=== PATIENT | male | born 1955 | race Caucasian/White ===

== ENCOUNTER 2019-11-29 07:23 | Outpatient (CLI) | payer MEDICARE, OTHER | END 2019-11-29 23:59 | disposition home or self-care (01) | LOC: LAB 07:23 | PROVIDERS: ATTEND Specialist | DX: Z01.812 Encounter for preprocedural laboratory examination (principal); Z11.59 Encounter for screening for other viral diseases | CPT/HCPCS: C9803; U0003 ==

== ENCOUNTER 2019-12-06 05:00 | Inpatient (IN) | payer MEDICARE, OTHER ==
[~2019-12-06] VITALS: Ht 175.3 cm; Wt 96.4 kg
[2019-12-06] VITALS (7 sets, daily range): BP systolic 104–125; BP diastolic 60–78
[2019-12-06] MEDS ORDERED: IBUP-1958 PO (05:49)
--- NOTE | 2019-12-06 05:50 | NUR ---
MS RN ADMITTING NOTES PATIENT RECEIVED FROM HOME, AMBULATORY A/O X 4. STABLE ON RA WITH BREATHING EVEN AND UNLABORED, NO SOB NOTED. NO SIGNS OF ACUTE DISTRESS. NO COMPLAINTS OF PAIN OR DISCOMFORT AT THE MOMENT. PATIENT REMAINED NPO THROUGHOUT THE NIGHT. CONSENT SIGNS. VITALS TAKEN. BELONGINGS ACCOUNTED FOR. PATIENT ORIENTED TO ROOM AND STAFF. IV STARTED ON R FA #20 SL. WILL CONTINUE TO MONITOR. MD AT BEDSIDE.
--- NOTE | 2019-12-06 06:00 | NUR ---
MS RN NOTES PT WENT DOWN FOR SURGERY, WILL ENDORSE TO ONCOMING SHIFT ABOUT AMOS.
[2019-12-06] MEDS ORDERED: ANESTHESIA TRAY IN PYXIS 1 EA TRAY MC ONE (06:04)
[2019-12-06] MEDS ORDERED: BACITRACIN 50000 UNITS/VIAL ONE (06:04)
[2019-12-06] MEDS ORDERED: BUPIVACAINE 0.5 % PF 150 MG/30 ML VIAL ONE (06:04)
[2019-12-06] MEDS ORDERED: FENTANYL PF 250MCG/5ML AMPUL ONE ×2 (06:09)
[2019-12-06] MEDS ORDERED: MIDAZOLAM HCL 2 MG/2ML VIAL ONE (06:09)
[2019-12-06] MEDS ORDERED: BUPIVACAINE 0.25% 75 MG/30 ML VIAL ONE (06:10)
[2019-12-06] MEDS ORDERED: HYDROMORPHONE INJ 2 MG/ML DISP.SYRIN ONE (06:10)
[2019-12-06] MEDS ORDERED: FAMOTIDINE/PF INJ 20 MG/2 ML VIAL IV ONE (06:11)
[2019-12-06] MEDS ORDERED: ROCURONIUM BROMIDE 50 MG/5 ML ONE (06:11)
--- NOTE | 2019-12-06 06:43 | NUR ---
MS RN NOTES PATIENT SHOULDER SLING DELIVERED, LEFT AT BEDSIDE.
[2019-12-06] MEDS ORDERED: TRANEXAMIC ACID 3,000 MG in SODIUM CHLORIDE IRRIG SOLUTION 70 ML IR ONE (07:00)
[2019-12-06] MEDS ORDERED: HYDROCODONE/APAP 5/325MG 1 EACH TABLET PO PRN (09:30)
[2019-12-06] MEDS ORDERED: DOCUSATE SODIUM 250 MG CAPSULE PO PRN (09:30)
[2019-12-06] MEDS ORDERED: IV D5/0.45 NACL 1,000 ML IV PRN (09:30)
[2019-12-06] MEDS ORDERED: BISACODYL SUPP (10 MG) 10 MG/SUPP.RECT SUPP.RECT RC PRN (09:30)
[2019-12-06] MEDS ORDERED: SENNOSIDES 8.6 MG TABLET PO PRN (09:30)
[2019-12-06] MEDS ORDERED: ONDANSETRON HCL/PF 4 MG/2 ML VIAL IVP PRN ×2 (09:30→10:00)
[2019-12-06] MEDS ORDERED: ZOLPIDEM TARTRATE 5 MG TABLET PO PRN (09:30)
--- NOTE | 2019-12-06 09:50 | NUR ---
MS/RN NOTE THE PATIENT IS RECEIVED FROM OR IN BED. THE PATIENT ALERT AND ORIENTED X4. DENIES PAIN. RECEIVING OXYGEN AT 2L.MIN VIA NASAL CANNULA AND DENIES SOB. RESPIRATION REGULAR AND UNLABORED. LEFT SHOULDER SURGICAL DRESSING INTACT. NO S/S POOR CIRCULATION ON LEFT HAND/ARM NOTED. RFA G20 PATENT AND SALINE LOCKED. BED LOW AND LOCKED. SIDE RAILS UP X3. WILL CONTINUE TO MONITOR.
[2019-12-06] MEDS ORDERED: diphenhydrAMINE HCL 25 MG CAPSULE PO PRN (10:00)
[2019-12-06] MEDS ORDERED: MAGNESIUM HYDROXIDE 30 ML UDC PO PRN (10:00)
[2019-12-06] MEDS ORDERED: NALOXONE HCL 0.4 MG/ML AMPUL IV PRN (10:00)
[2019-12-06] MEDS ORDERED: CLONIDINE HCL 0.1 MG TABLET PO PRN (10:00)
[2019-12-06] MEDS ORDERED: MAG HYDROX/AL HYDROX/SIMETH 30 ML UDC PO PRN (10:00)
[2019-12-06] MEDS ORDERED: MENTHOL/CETYLPYRD (CEPACOL) 1 LOZ LOZENGE MM PRN (10:00)
[2019-12-06] MEDS ORDERED: HYDROMORPHONE 1 MG/1 ML DISP.SYRIN IV PRN (10:00)
[2019-12-06] MEDS ORDERED: BETHANECHOL CHLORIDE (25 MG) 25 MG TABLET PO ONE (12:14)
[2019-12-06] MEDS ORDERED: TAMSULOSIN 0.4 MG CAP.SR.24H PO ONE (12:14)
[2019-12-06] MEDS: BETHANECHOL CHLORIDE (25 MG) 25 MG TABLET PO SCH ×2 (12:39→17:44)
[2019-12-06] MEDS: ANCEF 1 GM/50 ML D5W IV SCH ×4 (15:11→22:16)
[2019-12-06] MEDS ORDERED: oxyCODONE IR immediate release 5 MG PO ONE (17:00)
[2019-12-06] MEDS: FAMOTIDINE (20 MG) 20 MG TABLET PO SCH (17:44)
[2019-12-06] MEDS: DOCUSATE SODIUM 100 MG CAPSULE PO SCH (17:44)
--- NOTE | 2019-12-06 18:55 | NUR ---
MS/RN NOTE THE PATIENT IS ALERT AND ORIENTED X4. DENIES PAIN. RESPIRATION REGULAR AND UNLABORED. THE PATIENT IS IN ROOM AIR AND SATURATION IS AT 97%. PATIENT IN NO APPARENT DISTRESS. LEFT SHOULDER INCISION DRESSING INTACT. NO S/S POOR CIRCULATION ON LEFT HAND /ARM NOTED. LEFT ARM SLING STILL IN PLACED PLACED IN OT. RIGHT FA G 20 PATENT AND D5 1/2 NS INFUSING AR 75ML/HR. NO S/S INFILTRATION NOTED. BED LOW AND LOCKED. SIDE RAILS UP X3. CALL LIGHT WITHIN REACH. WILL ENDORSE TO NEWSPAPER EDITOR.
--- NOTE | 2019-12-06 19:30 | NUR ---
MS/RN PM OPENING NOTE THE PATIENT IS ALERT AND ORIENTED X4. DENIES PAIN. REPORTS HE HAS STILL HAS NUMBNESS TO LEFT HAND. REPORTS TINGLING SENSATION IN FINGERS, CAP REFILL LESS THEN 3 SECONDS TO LEFT HAND AND IS PINK. LEFT ARM IN SLING SURGICAL DRESSING TO LEFT SHOULDER IS CDI WITH NO SIGNS OF DRAINAGE/BLEEDING. RESPIRATION EVEN REGULAR AND UNLABORED. THE PATIENT IS IN ROOM AIR AND SATURATION IS AT 97%. PATIENT IN NO APPARENT DISTRESS. LEFT SHOULDER INCISION DRESSING INTACT. RIGHT FA G 20 PATENT AND D5 1/2 NS PATIENT TOLERATING PO INTAKE SO IV HEPLOCKED PER SURGICAL ORDERS. NO S/S INFILTRATION NOTED. BED LOW AND LOCKED. SIDE RAILS UP X3. CALL LIGHT WITHIN REACH. WILL CONTINUE TO MONITOR.
[2019-12-06] MEDS: oxyCODONE IR immediate release 5 MG PO PRN (22:04)
--- NOTE | 2019-12-07 02:00 | NUR ---
OXYCODONE 10MG AND TYELENOL ADMINISTERED PER PATIENT REQUEST. PATIENT REQUESTING DOSE OF EQUIVALENT HOME MEDICATION PERCOCET 10/325MG. PATIENT REPORTS PAIN IS 6/10. OXYCODONE 10 MG AND TYELENOL ADMINISTERED PER PATIENT REQUEST.
[2019-12-07] MEDS: ACETAMINOPHEN 325 MG TABLET PO PRN ×2 (02:01→05:58)
[2019-12-07] MEDS: oxyCODONE IR immediate release 5 MG PO PRN ×3 (02:01→09:32)
--- NOTE | 2019-12-07 05:50 | NUR ---
oxycodone ir 10 mg administered per patient request for pain in left shoulder rated 6 of 10.
--- NOTE | 2019-12-07 06:00 | NUR ---
dr. sanchez called and updated on patients condition. tyelenol administered per patient request for pain left shoulder 08/09
--- NOTE | 2019-12-07 07:30 | NUR ---
MS/RN NOTE THE PATIENT IS RECEIVED IN BED. THE PATIENT IS ALERT AND ORIENTED X4. RESPIRATION REGULAR AND UNLABORED. IN ROOM AIR AND DENIES SOB. RESPIRATION REGULAR AND UNLABORED. COMPLAINS OF LEFT SHOULDER PAIN 3/10 BUT DOES NOT WANT ANY PAIN MEDICATION AT THIS TIME. WILL CONTINUE TO ASSESS PAIN AND OFFER PAIN MEDICATION IF NEEDED. LEFT HAND/ARM WARM TO TOUCH. DENIES NUMBNESS/ TINGLING. BED LOW AND LOCKED. SIDE RAILS UP X2. CALL LIGHT WITHIN REACH. WILL CONTINUE TO MONITOR.
[2019-12-07 08:00] VITALS: BP 107/65
[2019-12-07] MEDS ORDERED: TAMSULOSIN 0.4 MG CAP.SR.24H PO SCH (09:00)
[2019-12-07] MEDS ORDERED: ASPIRIN 325 MG TABLET PO SCH (09:00)
[2019-12-07] MEDS: DOCUSATE SODIUM 100 MG CAPSULE PO SCH (09:33)
[2019-12-07] MEDS: FAMOTIDINE (20 MG) 20 MG TABLET PO SCH (09:33)
[2019-12-07] MEDS: BETHANECHOL CHLORIDE (25 MG) 25 MG TABLET PO SCH (09:33)
--- NOTE | 2019-12-07 11:40 | NUR ---
MS/RN NOTE THE PATIENT ALERT AND ORIENTED X4. DENIES PAIN AT THIS TIME. LEFT ARM ON A SLING APPLIED BY PT/OT. THE PATIENT VERBALIZED FEELING THE SUPPORT OF THE SLING AND IT BEING COMFORTABLE. DENIES NUMBNESS OR TINGING IN THE ARM/HAND. SKIN WARM TO TOUCH. DENIES SOB. RESPIRATION REGULAR AND UNLABORED. THE PATIENT IN NO APPARENT DISTRESS. DISCHARGE EDUCATION PROVIDED AND THE PATIENT VERBALIZED UNDERSTANDING. PATIENT LEFT THE HOSPITAL IN STABLE CONDITION. PICKED UP BY DANIELA ON A PRIVATE CAR.
== END 2019-12-07 11:40 | disposition home health service (06) | DRG 483 ==
LOC: DS 05:00 → MED 05:08
PROVIDERS: ADMIT Nurse Practitioner Acute Care; ATTEND Nurse Practitioner Acute Care
PROC: 0RRK0JZ Replacement of Left Shoulder Joint with Synthetic Substitute, Open Approach (ICD-10-PCS; principal; 2019-12-06)
PROC: 0LS40ZZ Reposition Left Upper Arm Tendon, Open Approach (ICD-10-PCS; 2019-12-06)
DX: M19.012 Primary osteoarthritis, left shoulder (principal); D68.69 Other thrombophilia; Z98.1 Arthrodesis status; K21.9 Gastro-esophageal reflux disease without esophagitis; E66.9 Obesity, unspecified; Z68.31 Body mass index [BMI] 31.0-31.9, adult; M48.061 Spinal stenosis, lumbar region without neurogenic claudication; N52.9 Male erectile dysfunction, unspecified
CPT/HCPCS: 36415; 86850-TC; 87081-TC; A4565; A6209; C1713; C1776; G0378; J0690; J1170; J2250; J2405; J2704; J2710; J2765; J3010; J3490; J7060